=== PATIENT | female | born 2000 | race Caucasian/White ===

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

== ENCOUNTER 2019-06-05 23:25 | Emergency (ER) | payer OTHER, SELFPAY | END 2019-06-05 23:53 | disposition home or self-care (01) | LOC: MADERS 23:25 | DX: O21.9 Vomiting of pregnancy, unspecified (principal); Z3A.01 Less than 8 weeks gestation of pregnancy | CPT/HCPCS: 99283 ==